=== PATIENT | female | born 1970 | race Caucasian/White ===

== ENCOUNTER 2023-11-29 15:34 | Emergency (ER) | payer BC, MEDICAID ==
[~2023-11-29] VITALS: Ht 167.6 cm; Wt 58.5 kg
[2023-11-29] MEDS ORDERED: PRED10TA23 PO (16:03)
[2023-11-29] MEDS: triamcinolone acetonide 40mg/ml inj IM ONE (16:19)
[2023-11-29 16:21] VITALS: BP 164/90; PULSE 100; RESP 15; TEMP 97.8; O2SAT 97
== END 2023-11-29 16:25 | disposition home or self-care (01) ==
LOC: ER 15:34
DX: L23.7 Allergic contact dermatitis due to plants, except food (principal); Z88.0 Allergy status to penicillin; Z91.041 Radiographic dye allergy status
CPT/HCPCS: 96372; 99283; J3301